=== PATIENT | male | born 1985 | race Caucasian/White ===

== ENCOUNTER 2017-03-17 12:17 | Emergency (ER) | payer OTHER ==
[~2017-03-17] VITALS: Ht 182.9 cm; Wt 91.8 kg
[2017-03-17 12:18] VITALS: BP 116/69
[2017-03-17] MEDS ORDERED: HYDROcodone/APAP 5/325 TABLET ONE (12:43)
[2017-03-17] MEDS ORDERED: HYDROcodone/APAP 5/325 TABLET PO ONE (13:00)
== END 2017-03-17 13:38 | disposition home or self-care (01) ==
LOC: ED 13:00
DX: S42.021A Displaced fracture of shaft of right clavicle, initial encounter for closed fracture (principal); V29.9XXA Motorcycle rider (driver) (passenger) injured in unspecified traffic accident, initial encounter; Y93.55 Activity, bike riding; Y92.830 Public park as the place of occurrence of the external cause; Y99.9 Unspecified external cause status
CPT/HCPCS: 99284